=== PATIENT | female | born 1955 | race Caucasian/White ===

== ENCOUNTER 2016-07-22 13:04 | Emergency (ER) | payer OTHER ==
[~2016-07-22] VITALS: Ht 149.9 cm; Wt 87.5 kg
[~2016-07-22 13:04] MED LIST: BUSPAR5 MG PO; ERGOCALCIF50000 UNIT PO; ESCITALOPRAM OX10 MG PO; LYRICA150 MG PO; MAGNESIUM400 M1 PO; MELOXICAM15 MG PO; OMEPRAZOLE40 M1 PO; PRILOSEC10 MG PO
[2016-07-22 14:05] LABS: HEMATOCRIT 39.2 % (36.0-46.0); MCH 28.3 PG (29.0-34.0); MCHC 34.2 G/DL (30.0-36.0); MCV 82.7 FL (83-99); MEAN PLAT.VOLUME 11.8 uM^3 (9.5-12.4); PLATELET COUNT 201 K/uL (156-360); RBC DIS.WIDTH-CV 13.5 % (11.8-14.6); RBC DIS.WIDTH-SD 40.2 % (39-53); RED BLOOD COUNT 4.74 M/uL (3.80-5.20); WHITE BLOOD COUNT 10.4 K/uL (4.1-10.2)
[2016-07-22 14:15] LABS: CHLORIDE 107 mEq/L (99-109); POTASSIUM 3.5 mEq/L (3.7-5.4); SODIUM 144 mEq/L (136-147)
[2016-07-22 14:18] LABS: ANION GAP 14 MEQ/L (2-14)
[2016-07-22 14:21] LABS: GFR ESTIMATE (CALCULATED) 49 mL/min/
[2016-07-22 14:22] LABS: UREA NITROGEN (BUN) 13 mg/dL (9-23)
[2016-07-22 14:27] LABS: GLUCOSE 93 mg/dL (70-99)
[2016-07-22 14:32] LABS: MAGNESIUM 0.7 mg/dL (1.3-2.7)
[2016-07-22 18:34] VITALS: BP 121/84
== END 2016-07-22 18:35 | disposition home or self-care (01) ==
LOC: EME 13:04
DX: E83.42 Hypomagnesemia (principal); M62.838 Other muscle spasm; M79.7 Fibromyalgia; K21.9 Gastro-esophageal reflux disease without esophagitis; Z87.891 Personal history of nicotine dependence
CPT/HCPCS: 80048; 83735; 85027; 93005; 99281; 99284; J3475